=== PATIENT | female | born 1955 | race Caucasian/White ===

== ENCOUNTER → 2017-03-12 | Outpatient (CLI) | payer OTHER ==
[~2017-03-12] MED LIST: ACET500 PO; B12 VITAMIN; Ecotrin325 MG PO; FOLATE; IBUP800 PO; Mobic15 MG PO; NAPR500 PO; Naprosyn500 MG PO; OXYC5 PO; Transderm-Scop1 EACH TOP; ZINC
== END ==
LOC: LAB SHORT 11:29 → PLD 11:29
DX: D48.5 Neoplasm of uncertain behavior of skin (principal)
CPT/HCPCS: 88305

== ENCOUNTER → 2017-04-06 | Outpatient (CLI) | payer OTHER | END | disposition home or self-care (01) | LOC: LAB SHORT 07:30 → PLD 07:30 | DX: C44.112 Basal cell carcinoma of skin of right eyelid, including canthus (principal) | CPT/HCPCS: 88305 ==

== ENCOUNTER 2020-03-15 10:30 | Emergency (ER) | payer MEDICARE, OTHER ==
[~2020-03-15] VITALS: Ht 154.9 cm; Wt 81.7 kg
== END 2020-03-15 11:45 | disposition home or self-care (01) ==
LOC: ER 10:30
DX: J02.9 Acute pharyngitis, unspecified (principal); Z88.0 Allergy status to penicillin
CPT/HCPCS: 87081; 87430; 99283; A9270; J1100

== ENCOUNTER → 2022-09-02 | Outpatient (CLI) | payer MEDICARE, OTHER | END | disposition home or self-care (01) | LOC: LAB SHORT 11:28 → PLD 11:28 | DX: L82.1 Other seborrheic keratosis (principal) | CPT/HCPCS: 88305 ==

== ENCOUNTER → 2023-03-02 | Outpatient (CLI) | payer MEDICARE, OTHER | END | disposition home or self-care (01) | LOC: LAB SHORT 19:22 → LAB 19:22 | DX: R10.9 Unspecified abdominal pain (principal) | CPT/HCPCS: 87086 ==

== ENCOUNTER 2025-01-19 00:09 | Day surgery (SDC) | payer OTHER ==
[2025-01-19 14:55] VITALS: BP 124/69
[2025-01-19] MEDS ORDERED: ZOLEDRONIC ACID414 IV (15:08)
== END 2025-01-19 15:39 | disposition home or self-care (01) ==
LOC: ATC 00:09
DX: M81.0 Age-related osteoporosis without current pathological fracture (principal); E55.9 Vitamin D deficiency, unspecified; Z87.891 Personal history of nicotine dependence; Z88.0 Allergy status to penicillin; Z98.84 Bariatric surgery status
CPT/HCPCS: 96365; J3489